=== PATIENT | female | born 1965 | race Caucasian/White ===

== ENCOUNTER 2019-01-03 17:30 | Inpatient (IN) | payer BC ==
[~2019-01-03] VITALS: Ht 170.2 cm; Wt 100.2 kg
[2019-01-03 17:36] VITALS: Ht 170.2 cm; Wt 100.2 kg
--- NOTE | 2019-01-03 18:27 | NUR ---
MSE COMPLETED BY DR. ROMAN.
--- NOTE | 2019-01-03 18:32 | NUR ---
PT BROUGHT TO ED BY SIGNIFICANT OTHER C/O SOB X1 DAY AND CONGESTED COUGH AND RUNNY NOSE X3 DAYS. PT REPORTS HX OF ASTHMA AND USING HER ALBUTEROL INHALER AT HOME ALL DAY WITHOUT RELIEF OF SOB. PT AA/O X4, RESPS EVEN AND SLIGHTLY LABORED, BILATERAL EXPIRATORY WHEEZING NOTED, SKIN WARM/DRY TO TOUCH, GOOD IN COLOR, NO ACUTE DISTRESS NOTED. PT GOWNED, PLACED ON MACHINE CLOTH TRIMMER AND PULSE OXIMETER, ROOM AIR O2 SATURATION 93%.
--- NOTE | 2019-01-03 18:55 | NUR ---
BREATHING TX IN PROGRESS, PT REPORTS FEELING BETTER SINCE ARRIVAL TO ED.
[2019-01-03 19:01] LABS: BASOPHIL % 0.7 % (0-2); PLATELET COUNT 255 x10^3mcL (130-400)
[2019-01-03 19:03] LABS: RED CELL DISTRIBUTION WIDTH 15.2 % (11.5-14.5)
--- NOTE | 2019-01-03 19:09 | NUR ---
REPORT GIVEN TO JACKIE MCLAUGHLIN.
[2019-01-03 19:11] LABS: CALCIUM 8.7 mg/dL (8.5-10.1); CARBON DIOXIDE 24.3 mmol/L (21-32); CHLORIDE SERUM 102 mmol/L (98-107); CREATININE SERUM 0.8 mg/dL (0.6-1.0); GFR1 > 60 mL/min; GLUCOSE SERUM 100 mg/dL (74-106); POTASSIUM SERUM 3.6 mmol/L (3.5-5.1); SODIUM SERUM 139 mmol/L (136-145)
[2019-01-03 19:19] LABS: ALBUMIN 3.6 g/dL (3.4-5.0); ALKALINE PHOSPHATASE 121 U/L (46-116); ALT/SGPT 71 U/L (14-59); AST/SGOT 35 U/L (15-37); BILIRUBIN TOTAL 0.3 mg/dL (0.20-1.00); LIPASE 87 IU/L (73-393); TOTAL PROTEIN, SERUM 7.5 g/dL (6.4-8.2); TRIGLYCERIDES 120 mg/dL (<150)
[2019-01-03 19:20] LABS: CHOLESTEROL 218 mg/dL (<200); CHOLESTEROL/HDL RATIO 3.1; HDL CHOLESTEROL 70 mg/dL (40-60)
[2019-01-03 19:26] LABS: FREE T4 0.88 ng/dL (0.76-1.46); FREE THYROXINE INDEX 2.4 ug/dL (1.4-4.5); T4(THYROXINE) 7.8 ug/dL (4.7-13.3)
[2019-01-03 19:29] LABS: T3 TOTAL 1.04 ng/mL
[2019-01-03] MEDS ORDERED: SINGULAIR10 MG PO (21:55)
[2019-01-03] MEDS ORDERED: VENTOLIN H0.09 MG/A1 INH (21:56)
--- NOTE | 2019-01-03 21:57 | NUR ---
PT STATES HAS A REMOVAL BRIDGE TO UPPER AND LOWER JAW.
[2019-01-03] MEDS ORDERED: QVAR REDIHALE10.6 G1 INH (22:27)
[2019-01-04] VITALS (7 sets, daily range): BP systolic 128–151; BP diastolic 46–85
[2019-01-04 00:25] LABS: MAGNESIUM 1.9 mg/dL (1.8-2.4); PHOSPHOROUS 3.3 mg/dL (2.5-4.9)
--- NOTE | 2019-01-04 00:48 | NUR ---
REPORT TO ARNOLDO ONEAL ON TELE UNIT. PT RESTING AT THIS TIME. CONTINUES TO HAVE SHORTNESS OF BREATH WITH EXERTION.
--- NOTE | 2019-01-04 01:00 | NUR ---
[facility] ACCOMPANIED BY RN AND TRANSPORTER. PT A/A/O X 4, CALM, COOPERATIVE. PT ABLE TO AMBULATE FROM GUERNEY TO BED WITHOUT GAIT OR BALANCE IMPAIRMENT. ON TELE # 42, NSR, HR 94, DENIES CHEST PAIN OR DISCOMFORT AT THIS TIME. BUL/BLL WHEEZE, CHEST RISING EVENLY, 2LNC, 95%. IV SITE RFA, CDI. ORIENTED PT TO ROOM, BED CONTROLS, CALL LIGHT SYSTEM. SIDE RAILS UP X 2, BED IN LOW POSITION. WILL ENDORSE TO ARNOLDO SKELTON.
--- NOTE | 2019-01-04 01:10 | NUR ---
PT TRANSFERRED TO TELE BED 253A VIA [facility] ON CHIEF ORDER DISPATCHER WITH EMT XUAN AND MYSELF, RN DESHAUN. PT AMBULATED TO RESTROOM WITH STEADY GAIT. PT A&OX4,NO ACUTE DISTRESS NOTED, RESP EVEN AND UNLABORED.
--- NOTE | 2019-01-04 01:53 | NUR ---
DR OREILLY RESIDENT ON DUTY SEEN THE PT, ADMISSION ORDERS COMPLETED, IVF NS STARTED @ 100CC/HR, PT MORE COMFORTABLE AT THIS TIME, STILL WITH CHEST CONGESTION, 02 @ 2L/MIN NC CONTINUOUSLY DELIVERED, CONT TO MONITOR.
[2019-01-04 06:42] LABS: CALCIUM 8.5 mg/dL (8.5-10.1); CARBON DIOXIDE 21.9 mmol/L (21-32); CHLORIDE SERUM 105 mmol/L (98-107); CREATININE SERUM 0.8 mg/dL (0.6-1.0); GFR1 > 60 mL/min; GLUCOSE SERUM 158 mg/dL (74-106); MAGNESIUM 2.4 mg/dL (1.8-2.4); PHOSPHOROUS 2.3 mg/dL (2.5-4.9); POTASSIUM SERUM 4.2 mmol/L (3.5-5.1); SODIUM SERUM 139 mmol/L (136-145)
[2019-01-04 06:48] LABS: PLATELET COUNT 250 x10^3mcL (130-400)
[2019-01-04 07:02] LABS: BASOPHIL % 0 % (0-2); RED CELL DISTRIBUTION WIDTH 15.1 % (11.5-14.5)
--- NOTE | 2019-01-04 07:45 | NUR ---
AWAKE,ALERT AND ORIENTED. DENIES ANY PAIN AT THIS TIME,CONT. 02 AT 2 L N/C ON.NO ACUTE RESP. DISTRESS NOTED.ABLE TO AMBULATE IN THE BATHROOM AND VOIDING WELL .CONT. IV FLUIDS ORDERED.WILL CONT. PLAM OF CARE.
--- NOTE | 2019-01-04 18:46 | NUR ---
DENIES PAIN AT THIS TIME RESTING COMFORTABLY IN BED. CALL LIGHT W/ IN REACH.
--- NOTE | 2019-01-04 19:40 | NUR ---
AOX4. TELE #42, SR. EXPIRATORY WHEEZES HEARD OVER BILAT LUNGS ON NC @ 2L. C/O SOB, REQUESTING BREATHING TX, RT PAGED FOR SERVICE. PULSES PALPABLE. NO EDEMA. BOWEL SOUNDS ACTIVE. VOIDS FREELY. AMBULATORY. SKIN INTACT. DENIES PAIN. IV TO RFA, PATENT AND INFUSING. BED IN LOWEST POSITION, 2 SIDE RAILS UP, CALL LIGHT IN REACH. INSTRUCTED TO CALL FOR ASSISTANCE.
--- NOTE | 2019-01-05 01:15 | NUR ---
RESTING IN BED WITH EYES CLOSED. BREATHING EVEN AND UNLABORED ON NC @ 2L. NO ACUTE DISTRESS NOTED. WILL CONTINUE TO MONITOR.
[2019-01-05 05:44] VITALS: BP 138/74
--- NOTE | 2019-01-05 06:19 | NUR ---
PT DENIES SOB THIS AM. WHEEZES STILL HEARD ON EXHALATION, ON NC @ 2L. NO ACUTE DISTRESS NOTED. NO ACUTE CHANGES. REMINDED PT OF NEED TO COLLECT URINE SPECIMEN. SUPPLIES AT BEDSIDE. WILL ENDORSE TO ONCOMING RN.
[2019-01-05 06:39] LABS: CALCIUM 8.4 mg/dL (8.5-10.1); CARBON DIOXIDE 25.1 mmol/L (21-32); CHLORIDE SERUM 107 mmol/L (98-107); CREATININE SERUM 0.7 mg/dL (0.6-1.0); GFR1 > 60 mL/min; GLUCOSE SERUM 154 mg/dL (74-106); MAGNESIUM 2.3 mg/dL (1.8-2.4); PHOSPHOROUS 3.2 mg/dL (2.5-4.9); POTASSIUM SERUM 4.8 mmol/L (3.5-5.1); SODIUM SERUM 141 mmol/L (136-145)
--- NOTE | 2019-01-05 07:55 | NUR ---
AWAKE,ALERT AND ORIENTED,DENIES ANY PAIN AT THIS TIME.AMBULATED IN THE BATHROOM MEG WELL . NO ACUTE RESP. DISTRESS NOTED. CONT.02 AT 2 L N/C W/ R.T PROTOCOL,ENCOURAGE OOB TO CHAIR MEG WELL.CALL LIGHT W/ I REACH.WILL CONT. PLAN OF CARE.
[2019-01-05 08:00] LABS: PLATELET COUNT 280 x10^3mcL (130-400)
[2019-01-05 08:09] LABS: BASOPHIL % 0 % (0-2); RED CELL DISTRIBUTION WIDTH 15.6 % (11.5-14.5)
[2019-01-05 08:59] VITALS: BP 150/75
[2019-01-05 09:50] LABS: microscopic required? NO
--- NOTE | 2019-01-05 10:00 | NUR ---
DR. FORRESTER HERE AND SEEN THE PT. AND NOTIFIED REG. WBC 15.3 MADE AWARE NO FURTHER ORDERS MADE.
[2019-01-05 10:17] LABS: UA SPECIFIC GRAVITY 1.015 (1.005-1.035); urine erythrocyte NEGATIVE (NEGATIVE)
[2019-01-05 13:03] VITALS: BP 139/78
[2019-01-05 17:23] VITALS: BP 142/75
--- NOTE | 2019-01-05 18:00 | NUR ---
DENIES ANY PAIN THE WHOLE DAY. NO ACUTE RESP DESTRESS NOTED. CALL LIGHT W/ IN REACH.
--- NOTE | 2019-01-05 19:25 | NUR ---
AOX4. TELE #42, ST, HR 111. MILD EXPIRATORY WHEEZES HEARD OVER BUL ON NC @ 2L. DENIES SOB AT THIS TIME. PULSES PALPABLE. NO EDEMA. BOWEL SOUNDS ACTIVE. VOIDS FREELY. AMBULATORY. SKIN INTACT. DENIES PAIN. IV TO RFA, PATENT AND INFUSING. BED IN LOWEST POSITION, 2 SIDE RAILS UP, CALL LIGHT IN REACH. INSTRUCTED TO CALL FOR ASSISTANCE.
[2019-01-05 20:43] VITALS: BP 150/78
--- NOTE | 2019-01-06 00:01 | NUR ---
IV TO RFA INFILTRATED. D/C INTACT. NEW ACCESS ESTABLISHED TO RH, 22G.
--- NOTE | 2019-01-06 02:05 | NUR ---
RESTING IN BED WITH EYES CLOSED. BREATHING EVEN AND UNLABORED ON NC @ 2L. NO ACUTE DISTRESS NOTED. WILL CONTINUE TO MONITOR.
--- NOTE | 2019-01-06 05:36 | NUR ---
0505- Pt PLACED ON RA POST PRN TX, 2L N/C LEFT AT BEDSIDE FOR SOB. 0535- Pt SPO2 89-90% ON RA WITHOUT ANY SOB NOTED. Pt STATES SHE IS IN NO DISTRESS, LOOKS COMFORTABLE WELL. 2L N/C LEFT AT BEDSIDE.
[2019-01-06 05:46] VITALS: BP 142/78
[2019-01-06 06:48] LABS: PLATELET COUNT 267 x10^3mcL (130-400)
[2019-01-06 06:52] LABS: BASOPHIL % 0 % (0-2); RED CELL DISTRIBUTION WIDTH 15.2 % (11.5-14.5)
[2019-01-06 06:59] LABS: CALCIUM 8.1 mg/dL (8.5-10.1); CHLORIDE SERUM 108 mmol/L (98-107); CREATININE SERUM 0.7 mg/dL (0.6-1.0); GFR1 > 60 mL/min; GLUCOSE SERUM 131 mg/dL (74-106); MAGNESIUM 2.3 mg/dL (1.8-2.4); POTASSIUM SERUM 4.1 mmol/L (3.5-5.1); SODIUM SERUM 140 mmol/L (136-145)
--- NOTE | 2019-01-06 07:05 | NUR ---
NO ACUTE DISTRESS NOTED. NO ACUTE CHANGES. WILL ENDORSE TO ONCOMING RN.
--- NOTE | 2019-01-06 07:25 | NUR ---
PT AWAKE, ALERT, COOPERATIVE OF CARE. DENIES ANY PAIN AT MOMENT. ON 2LNC, DENIES SOB. SYMMETRIC CHEST RISE. IV INFUSING WELL TO RIGHT HAND#22. BED IN LOWEST POSITION, CALL LIGHT WITHIN REACH. WILL CONTINUE TO MONITOR.
[2019-01-06 08:51] VITALS: BP 139/69
[2019-01-06 13:07] VITALS: BP 130/75
--- NOTE | 2019-01-06 14:18 | NUR ---
PT AMBULATED ONE FULL LAP AROUND UNIT WITH O2SAT:94-97% ON ROOM AIR, EQUIPMENT ANALYST TERESA MADE AWARE OF RESULTS. IV DC'D PER ORDER. PT REPORTS COMFORT AT MOMENT, DENIES SOB. CALL LIGHT WITHIN REACH.
[2019-01-06 16:40] VITALS: BP 158/80
--- NOTE | 2019-01-06 18:44 | NUR ---
PT IN HIGH FOWLERS, EFFORLTESS BREATHING ON ROOM AIR. DENIES SOB, CHEST PAIN. TOLERATED MEDICATION WELL THROUGHOUT SHIFT. IV PATENT TO RIGHT HAND#22. BED IN LOWEST POSITION, CALL LIGHT WITHIN REACH.
--- NOTE | 2019-01-06 19:30 | NUR ---
PT IS A/O x4. ON MED SURG. DENIES ANY CHEST PAIN OR PRESSURE. PULSES ARE PRESENT. NO EDEMA NOTED. LUNGS CLEAR IN ALL FEILDS. ON RA, DENIES ANY SOB. EQUAL CHEST RISE AND FALL. NO SIGN OF RESP DISTRESS. BOWEL SOUNDS ACTIVE x4. DENIES ANY ABD DISTRESS. SKIN WARM AND INTACT. DENIES PAIN AT THIS TIME. IV ON RH, SALINE LOCKED. SITE CLEAN AND INTACT. FRIEND AT BEDSIDE. BED IS AT LOWEST SETTING. CALL LIGHT WITHIN REACH. BED IS AT LOWEST SETTING. WILL CONTINUE TO MONITOR.
[2019-01-06 21:44] VITALS: BP 140/70
--- NOTE | 2019-01-07 02:30 | NUR ---
PT IS RESTING IN BED WITH BOTH EYES CLOSED. BREATHING EVEN AND UNLABORED. NO SIGN OF DISTRESS NOTED. ON RA. BED IS AT LOWEST SETTING. CALL LIGHT WITHIN REACH. WILL CONTINUE TO MONITOR.
[2019-01-07 05:29] VITALS: BP 138/75
--- NOTE | 2019-01-07 06:56 | NUR ---
PT RESTING IN BED. IN NO DISTRESS. NO ACUTE EVENT OCCURED AT NIGHT. IV INTACT. BED IS AT LOWEST SETTING. CALL LIGHT WITHIN REACH. WILL ENDORSE TO AM NURSE.
--- NOTE | 2019-01-07 07:19 | NUR ---
RECEIVED PT FROM SHIFT NURSE Payam/ZAC RESTING IN BED. RESP EVEN AND UNLABORED ON RA. DENIES SOB. HEPLOCK PATENT. BED IN LOW POSITION. CALL LIGHT WITHIN REACH. WILL CONTINUE TO MONITOR.
[2019-01-07 09:16] VITALS: BP 161/84
[2019-01-07 09:45] VITALS: BP 136/66
--- NOTE | 2019-01-07 10:00 | NUR ---
PT RESTING IN BED TALKING ON THE PHONE. NO ACUTE DISTRESS NOTED. CALL LIGHT WITHIN REACH. WILL CONTINUE TO MONITOR.
[2019-01-07] MEDS ORDERED: IPRATROPIUM BROM3 M2 HHN (12:03)
[2019-01-07 12:33] VITALS: BP 136/66
[2019-01-07] MEDS ORDERED: SYMBICORT1 AE3 INH (13:31)
--- NOTE | 2019-01-07 13:50 | NUR ---
PT A/OX4 UPON DISCHARGE. RESP EVEN AND UNLABORED ON RA. DENIES SOB. NEW RX GIVEN. EDUCATION PROVIDED. INSTRUCTED TO FOLLOW UP WITH PCP. PT VERBALIZED UNDERSTANDING. IV REMOVED AND CATH INTACT. PERSONAL BELONGINGS TAKEN HOME. ACCOMPLANIED BY RN TO LOBBY.
== END 2019-01-07 13:54 | disposition home or self-care (01) | DRG 203 ==
LOC: ED 17:30 → DU 22:24 → MU 01-06 14:38
PROVIDERS: Specialist; ADMIT General Practice
DX: J45.22 Mild intermittent asthma with status asthmaticus (principal); R09.02 Hypoxemia; E78.5 Hyperlipidemia, unspecified; E66.9 Obesity, unspecified; Z68.34 Body mass index [BMI] 34.0-34.9, adult
CPT/HCPCS: 36600; 83880; 84439; 87804; 90658; 90732; 94150; J0171; J1644; J2920; J2930; J3475; J7030; J7613; J7620; J7626; J7644

== ENCOUNTER 2019-06-08 21:45 | Emergency (ER) | payer BC ==
[~2019-06-08] VITALS: Ht 170.2 cm; Wt 97.5 kg
[~2019-06-08 21:45] MED LIST: IPRATROPIUM BROM3 M2 HHN; QVAR REDIHALE10.6 G1 INH; SINGULAIR10 MG PO; SYMBICORT1 AE3 INH; VENTOLIN H0.09 MG/A1 INH
[2019-06-08 21:49] VITALS: Ht 170.2 cm; Wt 97.5 kg
[2019-06-08 23:10] VITALS: BP 138/86
== END 2019-06-08 23:10 | disposition home or self-care (01) ==
LOC: ED 21:45
DX: S93.401A Sprain of unspecified ligament of right ankle, initial encounter (principal); J45.909 Unspecified asthma, uncomplicated; Z88.1 Allergy status to other antibiotic agents; X50.1XXA Overexertion from prolonged static or awkward postures, initial encounter; Y93.89 Activity, other specified; Y92.89 Other specified places as the place of occurrence of the external cause; Y99.8 Other external cause status
CPT/HCPCS: J1885